=== PATIENT | male | born 1930 | race Caucasian/White ===

== ENCOUNTER 2016-08-15 10:28 | Inpatient (IN) | payer MEDICARE, OTHER ==
[2016-08-15 11:26] LABS: BASOPHIL# 0.2 X 10^3uL (0.0-0.1); EOSINOPHILS 1.2 % (0.0-6.0); EOSINOPHILS# 0.2 X 10^3uL (0.0-0.4); HEMATOCRIT 39.7 % (42.0-54.0); HEMOGLOBIN 13.8 g/dL (14.0-18.0); LYMPHOCYTES 10.6 % (20.0-40.0); LYMPHOCYTES# 1.9 X 10^3uL (0.8-3.8); MEAN CELL VOLUME 95.9 fL (80.0-100.0); MEAN CORPUS. HGB CONCENTRATION 34.7 g/dL (32.0-36.0); MEAN CORPUSCULAR HEMOGLOBIN 33.3 pg (29.0-35.0); MEAN PLATELET VOLUME 11.1 fL (7.4-10.4); MONOCYTES 9.2 % (2.0-10.0); MONOCYTES# 1.7 X 10^3uL (0.2-1.0); NEUTROPHILS# 14.3 X 10^3uL (2.6-6.7); PLATELET COUNT 170 X 10^3uL (130-440); RED BLOOD COUNT 4.14 X 10^6uL (4.20-6.10); RED CELL DISTRIBUTION WIDTH 14.4 % (11.5-14.5); WHITE BLOOD COUNT 18.3 X 10^3uL (3.9-10.7)
[2016-08-15 11:28] LABS: BLOOD UREA NITROGEN 22 mg/dL (9-20); CALCIUM 9.6 mg/dL (8.4-10.2); CHLORIDE 94 mmol/L (98-107); CREATININE 0.7 mg/dL (0.7-1.3); GLUCOSE 98 mg/dL (70-100); POTASSIUM 4.4 mmol/L (3.5-5.1); SODIUM 140 mmol/L (137-145)
--- NOTE | 2016-08-15 11:28 | RADIOLOGY REPORT ---
HISTORY: Shortness of breath. COMPARISON: None. FINDINGS: 1 view of the chest obtained. The lungs are hypoinflated. Coarse perihilar interstitial opacities may reflect vascular crowding rel ated to hypoinflation or mild edema. Retrocardiac airspace opacification may reflect relaxation atele ctasis or pneumonia. There are small bilateral pleural effusions, left greater than right. There is no evidence of pneumot horax. The heart is not enlarged. The patient is status post median sternotomy with numerous mediastinal cli ps suggesting prior coronary arterial bypass graft. The bones and soft tissues appear unremarkable. IMPRESSION: 1. Low lung volumes perihilar interstitial opacities may reflect mild edema or vascular crowding rela shahriar to hypoinflation. 2. Bilateral pleural effusions, with associated bibasilar airspace opacities, left greater than right , which may reflect relaxation atelectasis or pneumonia. Final Electronic Signature: This report was electronically signed by Gonzalo Casillas MD on 08/16/19 17 11:26 AM. meche /
[2016-08-15] MEDS ORDERED: POLYETHYLENE GLYCOL 3350 17 GM POWD.PACK PO PRN (11:53)
[2016-08-15] MEDS ORDERED: HOME MEDICATION LIST NEEDED 1 EA EACH MC ONE (11:53)
[2016-08-15] MEDS ORDERED: MAG-AL PLUS XS SUSP 30 ML UDC PO PRN (11:53)
[2016-08-15] MEDS ORDERED: ACETAMINOPHEN 325 MG TABLET PO PRN (11:53)
[2016-08-15] MEDS ORDERED: CLINDAMYCIN/D5W 600 MG/50 ML 600 MG IV ONE (11:57)
[2016-08-15] MEDS ORDERED: ENOXAPARIN SODIUM 100 MG/ML SYR SUBCUT SCH (12:00)
--- NOTE | 2016-08-15 12:55 | ER NURSING DOCUMENTATION ---
Nurse's Notes [facility] Name:Sebastien Adams Jr Age:86 yrs Sex:Male :1930 Arrival Date:08/15/2016 Time:10:28 Bed4 Private MD:Az Bray Diagnosis:Cellulitis of Leg Presentation: 08/15 10:40 Presenting complaint: Patient states: C/O weakness, bilat lower leg swelling with rs redness and pain. Hx of lung CA, developed a cough after returning from a trip to [place]. Saw Dr Quiroga on 08/05 and started z-pack and prednisone. Does not feel any better. SOB this morning, productive cough. Transition of care: Home. Notified ED Physician of patient's arrival and CC Dr. Robbins notified. at cartside on arrival. 10:40 Acuity: BOB 2 rs 10:40 Method Of Arrival: EMS: 400 rs Triage Assessment: 10:51 General: Appears in no apparent distress, comfortable, well developed, well nourished, rs well groomed, Behavior is cooperative, pleasant, Reports chills for 12-24 hours, fatigue for. Pain: Complains of pain in anterior lower legs, and left great toe (which is also red and swollen). Neuro: No deficits noted. 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 Reports weakness. Cardiovascular: No deficits noted. Capillary refill < 3 seconds Pulses are 3+ in left radial artery. Respiratory: Respiratory effort is even, unlabored, Respiratory pattern is regular, symmetrical, Reports shortness of breath cough that is productive, Onset: The symptoms/episode began/occurred the patient has moderate shortness of breath. GI: No deficits noted. Denies constipation, diarrhea, nausea, vomiting. : No deficits noted. Derm: Skin The skin over his lower legs is dry and cracking. his feet and ankles are edematous "better than usual". Skin is dry. Historical: - Allergies: PENICILLINS; - Home Meds: 1. Spiriva 2. Aspirin Oral 3. lisinopril 10 mg oral tab 1 tab once daily 4. Lasix 40 mg oral tab 1 tab once daily 5. Metamucil Smooth Texture Oral 6. Potassium Chloride Oral 7. Allopurinol Oral 8. Calcium Carbonate Oral 9. Stool Softener oral - PMHx: CAD; CANCER, LUNG; COPD; HYPERTENSION; MYOCARDIAL INFARCTION; Chest Pain (November 12, 2015); - PSHx: CABG; Mastoidectomy; CARPAL TUNNEL REPAIR; Bilat hip replacement; LOBECTOMY; - Tetanus: < 10 years. - Ebola Screening: : Patient negative for fever greater than or equal to 101.5 degrees Fahrenheit, and additional compatible Ebola Virus Disease symptoms. Patient denies exposure to infectious person. Patient denies travel to an Ebola-affected area in the 21 days before illness onset. No symptoms or risks identified at this time. . - Immunization history: Unable to Obtain. - Social history: Smoking status: Patient states former smoker of tobacco. Screenin:40 Infectious Disease Risk None. Abuse screen: Denies threats or abuse. Nutritional rs screening: No deficits noted. Assessment: 11:40 See Triage Assessment done by same RN. rs Vital Signs: 10:34 BP 113 / 63; Pulse 82; Resp 24; Temp 99.6; Pain 5/10; rs 10:59 BP 122 / 49; Pulse 76; Resp 22; Pulse Ox 97% on 5 lpm NC; Pain 5/10; rs 11:15 BP 127 / 53; Pulse 76; Resp 20; Pulse Ox 98% on 5 lpm NC; Pain 5/10; rs 11:30 BP 113 / 46; Pulse 74; Resp 20; Pulse Ox 98% on 5 lpm NC; Pain 5/10; rs 12:00 BP 115 / 45; Pulse 72; Resp 20; Pulse Ox 97% on 5 lpm NC; Pain 4/10; rs 12:30 BP 112 / 48; Pulse 77; Resp 20; Pulse Ox 98% on 5 lpm NC; Pain 4/10; rs ED Course: 10:29 Patient arrived in ED. lm3 10:29 Az Bray MD is Private Physician. lm3 10:30 Family accompanied patient. rs 10:30 Pulse Ox - RN Monitoring Only. rs 10:35 Bulmaro Robbins MD is Attending Physician. sc 10:40 Olga Hoffman, MIKE is Primary Nurse. rs 10:40 Door closed. Noise minimized. Oral care given. Warm blanket given. rs 10:47 Triage completed. rs 11:12 Port Xray Completed. dnn 11:13 CHEST; SINGLE VIEW [id number] In Process Unspecified. EDMS 11:13 CHEST SINGLE VIEW [id number] In Process Unspecified. EDMS 11:17 CHEST; SINGLE VIEW [id number] Sent. dnn 11:17 CHEST SINGLE VIEW [id number] Sent. dnn 11:18 CHEST; SINGLE VIEW [id number] In Process Unspecified. EDMS 11:18 CHEST SINGLE VIEW [id number] In Process Unspecified. EDMS 11:39 Notified ED Physician of patient's arrival and chief complaint. Dr. Robbins notified. rs 11:43 Private physician to see patient. Dr Bray here, with pt. rs 11:47 Az Bray MD is Admitting Physician. sc 12:26 Awaiting bed assignment. rs 12:27 Resting quietly. rs Administered Medications: Completed: Clindamycin 600 mg IVPB once 11:53 Drug: Clindamycin 600 mg; Volume: 50 ml; Route: IVPB; Rate: 1 ml/min; Infused Over: 30 rs mins; Site: left wrist; Delivery: [place] [facility]; 12:27 Follow up: IV Status: Completed infusion; IV Intake: 50ml rs Intake: 12:27 IV: 50ml; Total: 50ml. rs Outcome: 11:48 Decision to Admit by Provider. sc 12:42 Admitted to Med/surg accompanied by nurse, via stretcher. rs 12:42 Condition: improved 12:42 Report given to Schuyler RN 12:42 Instructed on need to admit 12:55 Patient left the ED. rs Signatures: Dispatcher [employer] Olga Aly RN RN rs Chew, Scott, MD MD sc Norman, David dnn McKibbon-Moore, Lisa 3
--- NOTE | 2016-08-15 12:55 | ER PHYSICIAN DOCUMENTATION ---
Physician Documentation [facility] Name:Sebastien Adams Jr Age:86 yrs Sex:Male :1930 Arrival Date:08/15/2016 Time:10:28 Bed4 Private MD:Az Bray ED, Scott Disposition: 08/15/16 11:48 Admit ordered for Az Bray. Preliminary diagnosis is Cellulitis of Leg. - Bed requested for Medical/Surgical. - Condition is Fair. - Problem is new. - Symptoms are unchanged. 23 HR OBS No HPI: 08/15 10:56 This 86 yrs old Male presents to ER via EMS with complaints of Leg Pain, Leg sc Swelling. 10:56 The patient presents with pain, that is acute, swelling. The complaints affect the left sc lakhani, right lakhani. Context: The problem was sustained at home, resulted from a chronic condition, an unknown cause, the patient can partially bear weight, must have assistance. Onset: The symptom(s)/episode began/occurred yesterday. Associated signs and symptoms: Pertinent positives: fever, rash, weakness. Historical: - Allergies: PENICILLINS; - Home Meds: 1. Spiriva 2. Aspirin Oral 3. lisinopril 10 mg oral tab 1 tab once daily 4. Lasix 40 mg oral tab 1 tab once daily 5. Metamucil Smooth Texture Oral 6. Potassium Chloride Oral 7. Allopurinol Oral 8. Calcium Carbonate Oral 9. Stool Softener oral - PMHx: CAD; CANCER, LUNG; COPD; HYPERTENSION; MYOCARDIAL INFARCTION; Chest Pain (November 12, 2015); - PSHx: CABG; Mastoidectomy; CARPAL TUNNEL REPAIR; Bilat hip replacement; LOBECTOMY; - Tetanus: < 10 years. - Ebola Screening: : Patient negative for fever greater than or equal to 101.5 degrees Fahrenheit, and additional compatible Ebola Virus Disease symptoms. Patient denies exposure to infectious person. Patient denies travel to an Ebola-affected area in the 21 days before illness onset. No symptoms or risks identified at this time. . - Immunization history: Unable to Obtain. - Social history: Smoking status: Patient states former smoker of tobacco. ROS: 10:58 Eyes: Negative for injury, pain, redness, and discharge. sc ENT: Negative for injury, pain, and discharge. Neck: Negative for injury, pain, and swelling. Cardiovascular: Negative for chest pain, palpitations, and edema. Abdomen/GI: Negative for abdominal pain, nausea, vomiting, diarrhea, and constipation. Back: Negative for injury and pain. 10:58 Neuro: Negative for headache, weakness, numbness, tingling, and seizure. sc 10:58 Constitutional: Positive for fever. 10:58 Respiratory: Positive for shortness of breath. 10:58 MS/extremity: Positive for swelling, tenderness. Exam: Head/Face: Normocephalic, atraumatic. Eyes: Pupils equal round and reactive to light, extra-ocular motions intact. Lids and lashes normal. Conjunctiva and sclera are non-icteric and not injected. Cornea within normal limits. Periorbital areas with no swelling, redness, or edema. ENT: Nares patent. No nasal discharge, no septal abnormalities noted. Tympanic membranes are normal and external auditory canals are clear. Oropharynx with no redness, swelling, or masses, exudates, or evidence of obstruction, uvula midline. Mucous membranes moist. Neck: Trachea midline, no thyromegaly or masses palpated, and no cervical lymphadenopathy. Supple, full range of motion without nuchal rigidity, or vertebral point tenderness. No meningismus. Chest/axilla: Normal chest wall appearance and motion. Nontender with no deformity. No lesions are appreciated. Cardiovascular: Regular rate and rhythm with a normal S1 and S2. No gallops, murmurs, or rubs. Normal PMI, no JVD. No pulse deficits. Abdomen/GI: Soft, non-tender, with normal bowel sounds. No distension or tympany. No guarding or rebound. No evidence of tenderness throughout. Back: No spinal tenderness. No costovertebral tenderness. Full range of motion. Skin: Warm, dry with normal turgor. Normal color with no rashes, no lesions, and no evidence of cellulitis. 10:58 Neuro: Awake and alert, GCS 15, oriented to person, place, time, and situation. sc Cranial nerves II-XII grossly intact. Motor strength 5/5 in all extremities. Sensory grossly intact. Cerebellar exam normal. Normal gait. 10:58 Constitutional: The patient appears alert, awake, febrile, frail. 10:58 Respiratory: the patient does not display signs of respiratory distress, Respirations: tachypnea, Breath sounds: rales, that are mild, are located in both bases. 10:58 Musculoskeletal/extremity: Extremities: grossly normal except: noted in the right lakhani and left lakhani: erythema, swelling, tenderness, ROM: intact in all extremities, Circulation is intact in all extremities. Sensation intact. Vital Signs: 10:34 BP 113 / 63; Pulse 82; Resp 24; Temp 99.6; Pain 5/10; rs 10:59 BP 122 / 49; Pulse 76; Resp 22; Pulse Ox 97% on 5 lpm NC; Pain 5/10; rs 11:15 BP 127 / 53; Pulse 76; Resp 20; Pulse Ox 98% on 5 lpm NC; Pain 5/10; rs 11:30 BP 113 / 46; Pulse 74; Resp 20; Pulse Ox 98% on 5 lpm NC; Pain 5/10; rs 12:00 BP 115 / 45; Pulse 72; Resp 20; Pulse Ox 97% on 5 lpm NC; Pain 4/10; rs 12:30 BP 112 / 48; Pulse 77; Resp 20; Pulse Ox 98% on 5 lpm NC; Pain 4/10; rs MDM: 10:35 Patient medically screened. nc 11:00 Differential diagnosis: chf with/without venous stasis and superficial cellulitis or sc thrombophlebitis. Data reviewed: vital signs, nurses notes, lab test result(s), and as a result, I will admit patient. Counseling: I had a detailed discussion with the patient and/or guardian regarding: the historical points, exam findings, and any diagnostic results supporting the discharge/admit diagnosis, lab results, radiology results, to return to the emergency department if symptoms worsen or persist or if there are any questions or concerns that arise at home. 08/15 11:30 Order name: CBC AUTO DIF, MDIF/RMOR IF IND [facility] 08/15 11:31 Interpretation: Abnormal: WHITE BLOOD COUNT 18.3; HEMOGLOBIN 13.8; HEMATOCRIT 39.7. nc 08/15 11:31 Order name: BASIC METABOLIC PANEL [facility] 08/15 11:32 Interpretation: Abnormal: CARBON DIOXIDE 40. nc 08/15 11:38 Order name: BNP,NT-PRO [facility] 08/16 07:24 Order name: CBC AUTO DIF, MDIF/RMOR IF IND [facility] 08/16 07:24 Order name: BASIC METABOLIC PANEL [facility] 08/16 11:07 Order name: BLOOD CULTURE [facility] 08/16 11:07 Order name: BLOOD CULTURE [facility] 08/17 09:27 Order name: BASIC METABOLIC PANEL [facility] 08/17 09:41 Order name: CBC AUTO DIF, MDIF/RMOR IF IND [facility] 08/17 10:06 Order name: URIC ACID [facility] 08/17 10:06 Order name: C-REACTIVE PROTEIN [facility] 08/15 11:13 Order name: CHEST; SINGLE VIEW [id number] [facility] 08/15 11:13 Order name: CHEST SINGLE VIEW [id number] [facility] 08/15 11:30 Order name: CHEST; SINGLE VIEW [id number]; Complete Time: 11:32 [facility] 08/15 11:31 Interpretation: Abnormal. sc 08/15 10:39 Order name: Iv Saline Lock; Complete Time: 11:35 sc Dispensed Medications: Completed: Clindamycin 600 mg IVPB once 11:53 Drug: Clindamycin 600 mg; Volume: 50 ml; Route: IVPB; Rate: 1 ml/min; Infused Over: 30 rs mins; Site: left wrist; Delivery: [place] [facility]ing; 12:27 Follow up: IV Status: Completed infusion; IV Intake: 50ml rs Signatures: Olga Hoffman RN RN Bulmaro Chavis MD MD nc
[2016-08-15] MEDS ORDERED: ALBUTEROL HFA 1 INH INHALER INHALATION PRN (13:41)
[2016-08-15] MEDS ORDERED: FUROSEMIDE 20 MG TABLET PO SCH (13:45)
[2016-08-15] MEDS: POTASSIUM CHLORIDE ER 20 MEQ TABLET PO SCH (15:06)
[2016-08-15] MEDS: LISINOPRIL 10 MG TABLET PO SCH (15:07)
[2016-08-15] MEDS: TIOTROPIUM BROMIDE 18 MCG CAP.W.DEV INHALATION SCH (15:14)
[2016-08-15] MEDS ORDERED: O2 HUMIDIFIER 650 ML BOTTLE INHALATION ONE (15:22)
--- NOTE | 2016-08-15 15:32 | HISTORY & PHYSICAL ---
DATE OF ADMISSION: 08/15/16 CHIEF COMPLAINT: Leg swelling. HISTORY OF PRESENT ILLNESS: An 86-year-old male awoke this morning with acute onset of bilateral leg edema with associated erythema and pain. Perhaps there were some vague symptoms that started last night. The patient just completed a course of azithromycin for respiratory symptoms. The patient has underlying oxygen dependent COPD with right upper lobe lobectomy for lung cancer, CAD, CHF , etc. ALLERGIES: Penicillin. MEDICATIONS Spiriva 18 mcg capsule 1 puff daily. ProAir HFA inhaler 2 puffs q.i.d. p.r.n. Colchicine 0.6 mg p.o. q.day. Aspirin 81 mg p.o. q.day. Furosemide 40 mg p.o. q.a.m. KCl 20 mEq p.o. q.day. Atorvastatin 20 mg p.o. q.h.s. Lisinopril 10 mg p.o. q.day. Docusate 100 mg p.o. q.day. Mucinex 1200 mg p.o. b.i.d. p.r.n. PAST MEDICAL HISTORY 1. Oxygen dependent COPD, oxygen 3 liters per minute by nasal prongs. 2. Squamous cell lung cancer diagnosed in 2011, status post right upper lobectomy and currently in remission, followed by Dr. De La Cruz and Dr. Maurice. 3. CAD in 1978 with IN in 1978, CABG surgery times 4 vessels in 1978, CABG surgery times 6 vessels in 2000. 4. CHF. 5. Asymptomatic cholelithiasis. 6. Depression. 7. Hypertension. 8. Gout. 9. Polycythemia vera for which the patient is on oxygen. 10. Hearing loss. 11. Hyperlipidemia. 12. Adrenal adenoma 1.3 cm. in 2011. 13. Hemorrhoidectomy. 14. Left carpal tunnel release surgery. 15. Right hip replacement. 16. Left hip replacement. SOCIAL HISTORY: times 3, 4 children. 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 He barton in [place] and reyes in [place]. Rare alcohol. Quit smoking in 2000. FAMILY HISTORY: Father at 86 of diabetes and had amputation. REVIEW OF SYSTEMS: No chest pain, chest pressure, chest tightness or other angina symptoms. No shortness of breath or cough. No kidney, liver, diabetes, thyroid, seizures, peptic ulcer disease, skin, allergy or bleeding disorders. No urinary problems. PREVENTATIVE HEALTH: Pneumovax in 2010. Prevnar in 2015. Flu shot 12/26/15. PHYSICAL EXAMINATION VITAL SIGNS: Blood pressure 113/63, pulse 82, respiratory rate 24, temperature 99.6, pulse ox 97% on oxygen at 5 liters per minute by nasal prongs. GENERAL: Elderly overweight male, NAD, with no respiratory distress. Alert and oriented times 3. HEENT: EOMI. PERRLA. Fundi difficult to visualize. Normal conjunctivae. TMs normal. Nasopharynx and oropharynx not injected. NECK: No adenopathy, thyromegaly or bruits. Supple. CHEST: Clear. No rales, rhonchi or wheezes, but has diminished breath sounds throughout. COR: RRR without murmurs, gallops, rubs or clicks. No jugular venous distention. No ectopy. ABDOMEN: Soft, nontender. No hepatosplenomegaly. No masses. No bruits. Bowel sounds present. LOWER EXTREMITIES: 3+ nonpitting edema three-quarters up bilateral shins, especially pedal. There is tender erythema in large patches of bilateral anterior shins. No calf or popliteal tenderness. Negative Homans sign. Posterior tibialis pulses difficult to palpate. Bilateral big toes tender to palpation and with movement, with patient concerned about gout there. NEUROLOGIC: Cranial nerves 2 through 12 intact. Motor 5/5. Sensory intact. LABORATORY STUDIES: WBC 18.3 with 78% neutrophils, 10% lymphocytes, H&H 13.8/ 39.7, platelets 170,000. Sodium 140, potassium 4.4, chloride 94, CO2 40, BUN 22 , creatinine 0.7, glucose 98, calcium 9.6. ProBNP 2100. IMAGING: Chest x-ray with bilateral pleural effusions, perihilar interstitial opacities per Radiology. ASSESSMENT 1. Bilateral lower leg cellulitis. 2. Oxygen dependent chronic obstructive pulmonary disease with mild CO2 retention. 3. History of lung cancer status post right upper lobe lobectomy. 4. Coronary artery disease. 5. Congestive heart failure. 6. Hypertension. 7. Hyperlipidemia. 8. Polycythemia vera. PLAN 1. Clindamycin 600 mg IV q.8h. 2. Lovenox prophylactically. 3. Resume usual medications. 4. Physical therapy for generalized weakness. 5. Full code status. 6. Respiratory therapy consult to assist in management of COPD and oxygen. Copy to Dr. Humphries, Dr. Roman, Dr. De La Cruz. [facility]
[2016-08-15] MEDS ORDERED: FUROSEMIDE 40 MG TABLET PO SCH (16:00)
[2016-08-15] MEDS: CLINDAMYCIN/D5W 600 MG/50 ML 600 MG PIGGYBACK IV SCH (20:53)
[2016-08-15] MEDS: ATORVASTATIN CALCIUM 10 MG TABLET PO SCH (20:59)
[2016-08-15] MEDS ORDERED: NORMAL SALINE 250 ML IV ONE (21:09)
[2016-08-15] MEDS: COLCHICINE 0.6 MG TABLET PO PRN (21:59)
[2016-08-15] MEDS: GUAIFENESIN ER 600 MG TABLET PO PRN (22:03)
[2016-08-16] MEDS: CLINDAMYCIN/D5W 600 MG/50 ML 600 MG PIGGYBACK IV SCH ×3 (04:57→20:36)
[2016-08-16] MEDS: FUROSEMIDE 40 MG TABLET PO SCH (05:59)
[2016-08-16] MEDS ORDERED: FUROSEMIDE 20 MG TABLET PO SCH (06:30)
[2016-08-16 07:14] LABS: HEMATOCRIT 37.8 % (42.0-54.0); HEMOGLOBIN 12.7 g/dL (14.0-18.0); WHITE BLOOD COUNT 15.4 X 10^3uL (3.9-10.7)
[2016-08-16 07:15] LABS: MEAN CELL VOLUME 96.9 fL (80.0-100.0); MEAN CORPUS. HGB CONCENTRATION 33.5 g/dL (32.0-36.0); MEAN CORPUSCULAR HEMOGLOBIN 32.5 pg (29.0-35.0); MEAN PLATELET VOLUME 11.3 fL (7.4-10.4); PLATELET COUNT 154 X 10^3uL (130-440); RED CELL DISTRIBUTION WIDTH 14.2 % (11.5-14.5)
[2016-08-16 07:16] LABS: BASOPHIL# 0.2 X 10^3uL (0.0-0.1); BASOPHILS 1.4 % (0.0-2.0); BLOOD UREA NITROGEN 24 mg/dL (9-20); CHLORIDE 93 mmol/L (98-107); CREATININE 0.9 mg/dL (0.7-1.3); EOSINOPHILS 1.5 % (0.0-6.0); EOSINOPHILS# 0.2 X 10^3uL (0.0-0.4); GLUCOSE 96 mg/dL (70-100); LYMPHOCYTES# 2.2 X 10^3uL (0.8-3.8); MONOCYTES 10.3 % (2.0-10.0); MONOCYTES# 1.6 X 10^3uL (0.2-1.0); NEUTROPHILS 72.8 % (54.0-75.0); NEUTROPHILS# 11.2 X 10^3uL (2.6-6.7); POTASSIUM 4.3 mmol/L (3.5-5.1); SODIUM 141 mmol/L (137-145)
[2016-08-16] MEDS: DOCUSATE SODIUM 100 MG CAPSULE PO SCH (09:05)
[2016-08-16] MEDS: LISINOPRIL 10 MG TABLET PO SCH (09:06)
[2016-08-16] MEDS: POTASSIUM CHLORIDE ER 20 MEQ TABLET PO SCH (09:06)
[2016-08-16] MEDS: TIOTROPIUM BROMIDE 18 MCG CAP.W.DEV INHALATION SCH (09:06)
[2016-08-16] MEDS: ENOXAPARIN SODIUM 40 MG/0.4 ML SYR SUBCUT SCH (09:06)
[2016-08-16] MEDS: COLCHICINE 0.6 MG TABLET PO PRN ×2 (09:15→12:53)
--- NOTE | 2016-08-16 09:41 | PROGRESS NOTE: IM SOAP ---
IM: PN Subjective Interval history: Legs are feeling better with less edema, erythema. Able to walk in room. Awaiting PT. Could not sleep in bed, but slept great in chair last night. No cough, SOB. IM: PN Objective Exam - I&O/Vital Signs I&O: Intake & Output 08/15/16 08/16/16 08/16/16 21:59 05:59 13:59 Intake Total 600 300 Output Total 400 250 Balance 200 50 Intake: IV 150 Left Forearm 150 Oral 600 150 Output: Urine 400 250 Other: Urine Appearance Clear Urine Color Light Rocio Voiding Method Urinal Urinal Vital Signs: Last Vital Signs Temp 36.9 C 08/16/16 06:52 Pulse 64 08/16/16 06:52 Resp 18 08/16/16 06:52 BP 89/46 08/16/16 06:52 Pulse Ox 95 08/16/16 06:52 Oxygen Flow Rate 4 Oxygen Delivery Method Nasal Cannula - Constitutional General appearance: Present: obese - Respiratory Respiratory exam: Present: decreased breath sounds, clear. Absent: rales, rhonchi, wheezes - Cardiovascular Cardiovascular exam: Present: RRR Additional comments: Distant HS - GI/Abdominal GI/Abdominal exam: Present: soft. Absent: tenderness - Extremities Exam Extremities exam: Present: edema, tenderness. Absent: Laura's Sign Additional comments: 2+ and improving, except pedal edema. No warmth, and fading erythema. No lakhani tenderness. Only pain on palpation of L big toe, presumably secondary to gout. - Skin Skin exam: Present: other Additional comments: L dorsal hand skin tear - Lab Labs: Laboratory Last Values WBC 15.4 X 10^3uL (3.9-10.7) H 08/16/16 06:10 RBC 3.90 X 10^6uL (4.20-6.10) L 08/16/16 06:10 Hgb 12.7 g/dL (14.0-18.0) L 08/16/16 06:10 Hct 37.8 % (42.0-54.0) L 08/16/16 06:10 MCV 96.9 fL (80.0-100.0) 08/16/16 06:10 MCH 32.5 pg (29.0-35.0) 08/16/16 06:10 MCHC 33.5 g/dL (32.0-36.0) 08/16/16 06:10 RDW 14.2 % (11.5-14.5) 08/16/16 06:10 Plt Count 154 X 10^3uL (130-440) 08/16/16 06:10 MPV 11.3 fL (7.4-10.4) H 08/16/16 06:10 Neutrophils % 72.8 % (54.0-75.0) 08/16/16 06:10 Lymphocytes % 14.0 % (20.0-40.0) L 08/16/16 06:10 Eosinophils % 1.5 % (0.0-6.0) 08/16/16 06:10 Basophils % 1.4 % (0.0-2.0) 08/16/16 06:10 Neutrophils # 11.2 X 10^3uL (2.6-6.7) H 08/16/16 06:10 Lymphocytes # 2.2 X 10^3uL (0.8-3.8) 08/16/16 06:10 Monocytes 10.3 % (2.0-10.0) H 08/16/16 06:10 Monocytes # 1.6 X 10^3uL (0.2-1.0) H 08/16/16 06:10 Eosinophils # 0.2 X 10^3uL (0.0-0.4) 08/16/16 06:10 Basophils # 0.2 X 10^3uL (0.0-0.1) H 08/16/16 06:10 Sodium 141 mmol/L (137-145) 08/16/16 06:10 Potassium 4.3 mmol/L (3.5-5.1) 08/16/16 06:10 Chloride 93 mmol/L (98-107) L 08/16/16 06:10 Carbon Dioxide 38 mmol/L (22-30) H 08/16/16 06:10 BUN 24 mg/dL (9-20) H 08/16/16 06:10 Creatinine 0.9 mg/dL (0.7-1.3) 08/16/16 06:10 GFR Calculation Not Reportable 08/16/16 06:10 Glucose 96 mg/dL (70-100) 08/16/16 06:10 Calcium 9.6 mg/dL (8.4-10.2) 08/15/16 11:00 NT-Pro-B Natriuret Pep 2100 pg/mL (<450) H 08/15/16 11:00 Assessment and Plan - Date of Encounter Date of Encounter: 08/16/16 (1) Bilateral lower leg cellulitis Status: Acute Assessment and plan: Clindamycin 600mg IV tid Improving Possible D/C over the weekend Current Visit: Yes (2) Gout attack Status: Acute Assessment and plan: L Big Toe Colchicine Current Visit: Yes (3) Skin tear of left hand without complication Status: Acute Assessment and plan: Dressings Current Visit: Yes (4) COPD (chronic obstructive pulmonary disease) Status: Chronic Assessment and plan: O2 dependent @ 3 l/min Current Visit: Yes (5) Hypoxia Status: Chronic Current Visit: Yes (6) Lung cancer, upper lobe Status: Chronic Assessment and plan: In remission Current Visit: Yes (7) CAD (coronary artery disease) Status: Chronic Current Visit: Yes (8) CHF (congestive heart failure) Status: Acute Assessment and plan: Edema improving. c/o orthopnea, paroxysmal nocturnal dyspnea Lasix, KCl Leg elevation, exercise, low salt Current Visit: Yes (9) Edema Status: Acute Assessment and plan: Placing pt at risk for cellulitis Current Visit: Yes (10) HTN (hypertension) Status: Chronic Current Visit: Yes (11) Hyperlipidemia Status: Chronic Current Visit: Yes (12) Polycythemia vera Status: Chronic Assessment and plan: O2 Current Visit: Yes (13) Generalized weakness Status: Acute Assessment and plan: PT Pt can be discharged once cleared by PT. Current Visit: Yes - Time Spent With Patient Total time spent with greater than 50% in coordination of care (as documented) at patient's floor/unit and/or counseling patient: Quality Questions - VTE Prophylaxis Assessment VTE Present on Admission?: No Patient at risk for venous thromboembolism?: Yes VTE Risk Level: High Risk Pharmaceutical VTE prophylaxis contraindication reason: N/A- VTE prophylaxsis ordered Mechanical VTE prophylaxis contraindication reason: N/A- VTE prophylaxsis ordered
[2016-08-16 10:16] LABS: CALCIUM 9.5 mg/dL (8.4-10.2)
[2016-08-16] MEDS: GUAIFENESIN ER 600 MG TABLET PO PRN (18:25)
[2016-08-16] MEDS: ATORVASTATIN CALCIUM 10 MG TABLET PO SCH (20:36)
[2016-08-16] MEDS ORDERED: GUAIFENESIN ER 600 MG TABLET PO SCH (21:00)
[2016-08-17] MEDS: CLINDAMYCIN/D5W 600 MG/50 ML 600 MG PIGGYBACK IV SCH ×4 (06:36→21:12)
[2016-08-17] MEDS: FUROSEMIDE 40 MG TABLET PO SCH (06:36)
--- NOTE | 2016-08-17 09:15 | PROGRESS NOTE: IM APSO ---
Assessment and Plan - Date of Encounter Date of Encounter: 08/17/16 (1) Gout attack Status: Acute Assessment and plan: Not improving, patient has marked tenderness. I suspect the erythema on the legs may be gout related, rather than cellulitis. I will start a steroid taper. Current Visit: Yes (2) Bilateral lower leg cellulitis Status: Acute Assessment and plan: Patient has improved with Clindamycin. CBC is pending. WBC was elevated at 15, 400 yesterday. I will order a probiotic to take with the Clindamycin, as the patient's risk of C. Diff is high, particularly with added steroids. Current Visit: Yes (3) Generalized weakness Status: Chronic Assessment and plan: Multiple chronic medical conditions, patient is being treated by physical therapy. Current Visit: Yes (4) COPD (chronic obstructive pulmonary disease) Status: Chronic Assessment and plan: I was asked for an expectorant yesterday, due to difficulty clearing secretions. Patient is doing better with the addition of Mucinex, he states. Current Visit: Yes - Time Spent With Patient Total time spent with greater than 50% in coordination of care (as documented) at patient's floor/unit and/or counseling patient: 16-24 minutes IM: PN Subjective Interval history: Patient's coughing has improved with the start of Mucinex. He complains of feeling weak and tired. Labs for today are still pending, there was difficulty in drawing them. His gout has not improved. Patient did eat shrimp the night before he came in, which may have been a precipitant. Only occasional beer consumed, he says, one on the day before admission. His legs are less red. No fever or chills. General: fatigue, malaise HEENT: no headache Cardiovascular: no chest pain, no chest pressure Respiratory: no cough, no sputum, no wheeze, no SOB Gastrointestinal: no abdominal pain Musculoskeletal: pain, swelling Integumentary: rashes IM: PN Objective Exam - I&O/Vital Signs I&O: Intake & Output 08/16/16 08/17/16 08/17/16 21:59 05:59 13:59 Intake Total 730 200 Output Total 675 150 Balance 55 50 Intake: Oral 730 200 Output: Urine 675 150 Other: Urine Appearance Clear Clear Urine Color Yellow Yellow Voiding Method Urinal Urinal # Voids 2 Vital Signs: Last Vital Signs Temp 36.1 C L 08/17/16 06:29 Pulse 90 08/17/16 06:29 Resp 20 08/17/16 06:29 BP 94/56 08/17/16 06:29 Pulse Ox 91 08/17/16 06:29 Oxygen Flow Rate 4 Oxygen Delivery Method Nasal Cannula - Constitutional General appearance: Present: obese - Head Head exam: Present: normal inspection - Eye Eye exam: Present: EOMI. Absent: conjunctival injection Pupils: Present: PERRL - ENT ENT exam: Present: mucous membranes moist - Respiratory Respiratory exam: Present: decreased breath sounds, clear. Absent: rales, rhonchi, wheezes - Cardiovascular Cardiovascular exam: Present: RRR, systolic murmur - GI/Abdominal GI/Abdominal exam: Present: normal bowel sounds, soft. Absent: tenderness - Extremities Exam Extremities exam: Present: edema, tenderness (posterior left calf and left great toe in particular). Absent: Laura's Sign - Skin Skin exam: Present: other (erythematous patches on shins bilaterally,with some warmth. ) - Lab Labs: Laboratory Last Values WBC 15.4 X 10^3uL (3.9-10.7) H 08/16/16 06:10 RBC 3.90 X 10^6uL (4.20-6.10) L 08/16/16 06:10 Hgb 12.7 g/dL (14.0-18.0) L 08/16/16 06:10 Hct 37.8 % (42.0-54.0) L 08/16/16 06:10 MCV 96.9 fL (80.0-100.0) 08/16/16 06:10 MCH 32.5 pg (29.0-35.0) 08/16/16 06:10 MCHC 33.5 g/dL (32.0-36.0) 08/16/16 06:10 RDW 14.2 % (11.5-14.5) 08/16/16 06:10 Plt Count 154 X 10^3uL (130-440) 08/16/16 06:10 MPV 11.3 fL (7.4-10.4) H 08/16/16 06:10 Neutrophils % 72.8 % (54.0-75.0) 08/16/16 06:10 Lymphocytes % 14.0 % (20.0-40.0) L 08/16/16 06:10 Eosinophils % 1.5 % (0.0-6.0) 08/16/16 06:10 Basophils % 1.4 % (0.0-2.0) 08/16/16 06:10 Neutrophils # 11.2 X 10^3uL (2.6-6.7) H 08/16/16 06:10 Lymphocytes # 2.2 X 10^3uL (0.8-3.8) 08/16/16 06:10 Monocytes 10.3 % (2.0-10.0) H 08/16/16 06:10 Monocytes # 1.6 X 10^3uL (0.2-1.0) H 08/16/16 06:10 Eosinophils # 0.2 X 10^3uL (0.0-0.4) 08/16/16 06:10 Basophils # 0.2 X 10^3uL (0.0-0.1) H 08/16/16 06:10 Sodium 141 mmol/L (137-145) 08/16/16 06:10 Potassium 4.3 mmol/L (3.5-5.1) 08/16/16 06:10 Chloride 93 mmol/L (98-107) L 08/16/16 06:10 Carbon Dioxide 38 mmol/L (22-30) H 08/16/16 06:10 BUN 24 mg/dL (9-20) H 08/16/16 06:10 Creatinine 0.9 mg/dL (0.7-1.3) 08/16/16 06:10 GFR Calculation Not Reportable 08/16/16 06:10 Glucose 96 mg/dL (70-100) 08/16/16 06:10 Calcium 9.5 mg/dL (8.4-10.2) 08/16/16 06:10 NT-Pro-B Natriuret Pep 2100 pg/mL (<450) H 08/15/16 11:00 (1) Gout attack Qualifiers: Gout site: toe Laterality: left (4) COPD (chronic obstructive pulmonary disease) Qualifiers: COPD type: unspecified COPD Qualified Code(s): J44.9 - Chronic obstructive pulmonary disease, unspecified
[2016-08-17 09:25] LABS: CHLORIDE 96 mmol/L (98-107); GLUCOSE 112 mg/dL (70-100); POTASSIUM 4.6 mmol/L (3.5-5.1); SODIUM 137 mmol/L (137-145)
[2016-08-17 09:26] LABS: BLOOD UREA NITROGEN 32 mg/dL (9-20); CREATININE 0.8 mg/dL (0.7-1.3)
[2016-08-17] MEDS: ENOXAPARIN SODIUM 40 MG/0.4 ML SYR SUBCUT SCH (09:29)
[2016-08-17] MEDS: LISINOPRIL 10 MG TABLET PO SCH (09:29)
[2016-08-17] MEDS: GUAIFENESIN ER 600 MG TABLET PO SCH ×2 (09:30→21:12)
[2016-08-17] MEDS: TIOTROPIUM BROMIDE 18 MCG CAP.W.DEV INHALATION SCH (09:31)
[2016-08-17] MEDS: DOCUSATE SODIUM 100 MG CAPSULE PO SCH (09:31)
[2016-08-17] MEDS: POTASSIUM CHLORIDE ER 20 MEQ TABLET PO SCH (09:31)
[2016-08-17 09:35] LABS: CALCIUM 9.2 mg/dL (8.4-10.2); URIC ACID 9.5 mg/dL (3.5-8.5)
[2016-08-17 09:38] LABS: BASOPHIL# 0.7 X 10^3uL (0.0-0.1); BASOPHILS 4.7 % (0.0-2.0); EOSINOPHILS 1.8 % (0.0-6.0); EOSINOPHILS# 0.3 X 10^3uL (0.0-0.4); HEMATOCRIT 40.5 % (42.0-54.0); LYMPHOCYTES 11.9 % (20.0-40.0); LYMPHOCYTES# 1.8 X 10^3uL (0.8-3.8); MEAN CELL VOLUME 96.9 fL (80.0-100.0); MEAN PLATELET VOLUME 10.7 fL (7.4-10.4); MONOCYTES 9.3 % (2.0-10.0); MONOCYTES# 1.4 X 10^3uL (0.2-1.0); NEUTROPHILS 72.3 % (54.0-75.0); NEUTROPHILS# 10.8 X 10^3uL (2.6-6.7); PLATELET COUNT 138 X 10^3uL (130-440); RED BLOOD COUNT 4.18 X 10^6uL (4.20-6.10); RED CELL DISTRIBUTION WIDTH 14.2 % (11.5-14.5)
[2016-08-17] MEDS: PROBIOTIC 1 CAP CAPSULE PO SCH ×2 (09:52→21:12)
[2016-08-17] MEDS: predniSONE 10 MG TABLET PO SCH (09:52)
[2016-08-17 09:57] LABS: C-REACTIVE PROTEIN 71.3 mg/L (<10.0)
[2016-08-17] MEDS: ATORVASTATIN CALCIUM 10 MG TABLET PO SCH (21:15)
[2016-08-17] MEDS ORDERED: ATORVASTATIN CALCIUIM 40 MG TABLET ONE (21:27)
[2016-08-18] MEDS: CLINDAMYCIN/D5W 600 MG/50 ML 600 MG PIGGYBACK IV SCH ×3 (05:54→21:10)
[2016-08-18] MEDS: FUROSEMIDE 40 MG TABLET PO SCH (06:22)
[2016-08-18] MEDS: TIOTROPIUM BROMIDE 18 MCG CAP.W.DEV INHALATION SCH (08:47)
[2016-08-18] MEDS: ENOXAPARIN SODIUM 40 MG/0.4 ML SYR SUBCUT SCH (08:47)
[2016-08-18] MEDS: DOCUSATE SODIUM 100 MG CAPSULE PO SCH (08:48)
[2016-08-18] MEDS: POTASSIUM CHLORIDE ER 20 MEQ TABLET PO SCH (08:48)
[2016-08-18] MEDS: PROBIOTIC 1 CAP CAPSULE PO SCH ×2 (08:48→21:09)
[2016-08-18] MEDS: predniSONE 10 MG TABLET PO SCH (08:48)
[2016-08-18] MEDS: GUAIFENESIN ER 600 MG TABLET PO SCH ×2 (08:48→21:09)
[2016-08-18] MEDS: LISINOPRIL 10 MG TABLET PO SCH (08:53)
--- NOTE | 2016-08-18 09:26 | PROGRESS NOTE: IM APSO ---
Assessment and Plan - Date of Encounter Date of Encounter: 08/18/16 (1) Gout attack Status: Acute Assessment and plan: I have added Prednisone to his regimen, and there is decrease in tenderness and erythema of both legs, except the left calf, which is markedly tender, without findings of particular erythema on exam. Patient has been off Allopurinol for several years, he states, he does not know why, although his [facility] chart states "patient choice" in 2013. I encouraged him to consider a restart once he is through the acute attack. He now recalls that he ate at the [employer] twice last week, and had fairly large amounts of shrimp each time. I am adding a CPK to his bloodwork already in the lab (he is a VERY problematic access patient for blood draws,) to consider a myositis. His CRP elevation could well be consistent with gout, but his muscle tenderness and weakness are not. Continue efforts with physical therapy. Patient may need to enter transitional care status to regain strength. Current Visit: Yes (2) Bilateral lower leg cellulitis Status: Acute Assessment and plan: Patient continues on Clindamycin. I am not convinced of the diagnosis. Blood cultures are negative. WBC remains elevated, and has not responded well to antibiotic therapy. His WBC will be elevated now from steroids, but it did not decrease prior to that as it should have. There can certainly be an elevation of WBC with severe gout attacks, also. Current Visit: Yes (3) Generalized weakness Status: Chronic Assessment and plan: As above, CPK has been ordered, and the patient continues his PT. Given the patient's history of lung cancer, could also consider a paraneoplastic syndrome. Current Visit: Yes (4) COPD (chronic obstructive pulmonary disease) Status: Chronic Assessment and plan: Stable, with improved coughing symptoms on Mucinex. Current Visit: Yes - Time Spent With Patient Total time spent with greater than 50% in coordination of care (as documented) at patient's floor/unit and/or counseling patient: 16-24 minutes IM: PN Subjective Interval history: Does not feel too bad, but complains that he is weak. He is having difficulty getting up from a bed or chair, but once up is able to ambulate unassisted per nursing report. Pain has subsided. The labs from yesterday continue to show elevated WBC, his uric acid is very high at 9.5, and his CRP is very elevated at 73. I am not convinced that the patient has cellulitis, and feel he more likely has crystal disease, and would consider a muscular process, given his marked tenderness of the distal leg muscles on exam, particularly on the left. Consider myositis. General: fatigue HEENT: no headache Cardiovascular: no chest pain, no chest pressure Respiratory: no cough, no sputum, no wheeze, no SOB Gastrointestinal: no abdominal pain Musculoskeletal: pain, swelling Integumentary: rashes Neurological: limb weakness IM: PN Objective Exam - I&O/Vital Signs I&O: Intake & Output 08/17/16 08/18/16 08/18/16 21:59 05:59 13:59 Intake Total 900 750 Output Total 1175 500 Balance -275 250 Weight 102.512 kg Intake: IV 100 Left Forearm 100 Oral 900 650 Output: Urine 1175 500 Other: Urine Appearance Clear Clear Urine Color Straw Straw Voiding Method Urinal Urinal # Voids 2 Vital Signs: Last Vital Signs Temp 36.5 C 08/18/16 06:27 Pulse 67 08/18/16 06:27 Resp 20 08/18/16 06:27 BP 100/65 08/18/16 06:27 Pulse Ox 92 08/18/16 06:27 Oxygen Flow Rate 1.5 Oxygen Delivery Method Nasal Cannula - Constitutional General appearance: Present: obese - Head Head exam: Present: normal inspection - Eye Eye exam: Present: EOMI. Absent: conjunctival injection Pupils: Present: PERRL - ENT ENT exam: Present: mucous membranes moist - Respiratory Respiratory exam: Present: decreased breath sounds, clear. Absent: rales, rhonchi, wheezes - Cardiovascular Cardiovascular exam: Present: RRR, systolic murmur - GI/Abdominal GI/Abdominal exam: Present: normal bowel sounds, soft. Absent: tenderness - Extremities Exam Extremities exam: Present: edema, tenderness (posterior left calf and left great toe in particular). Absent: Laura's Sign - Neurological Exam Neurological exam: Present: alert. Absent: reflexes normal (diminished) - Skin Skin exam: Present: other (erythematous patches on shins bilaterally,with some warmth. ) - Lab Labs: Laboratory Last Values WBC 15.0 X 10^3uL (3.9-10.7) H 08/17/16 08:50 RBC 4.18 X 10^6uL (4.20-6.10) L 08/17/16 08:50 Hgb 13.0 g/dL (14.0-18.0) L 08/17/16 08:50 Hct 40.5 % (42.0-54.0) L 08/17/16 08:50 MCV 96.9 fL (80.0-100.0) 08/17/16 08:50 MCH 31.0 pg (29.0-35.0) 08/17/16 08:50 MCHC 32.0 g/dL (32.0-36.0) 08/17/16 08:50 RDW 14.2 % (11.5-14.5) 08/17/16 08:50 Plt Count 138 X 10^3uL (130-440) 08/17/16 08:50 MPV 10.7 fL (7.4-10.4) H 08/17/16 08:50 Neutrophils % 72.3 % (54.0-75.0) 08/17/16 08:50 Lymphocytes % 11.9 % (20.0-40.0) L 08/17/16 08:50 Eosinophils % 1.8 % (0.0-6.0) 08/17/16 08:50 Basophils % 4.7 % (0.0-2.0) H 08/17/16 08:50 Neutrophils # 10.8 X 10^3uL (2.6-6.7) H 08/17/16 08:50 Lymphocytes # 1.8 X 10^3uL (0.8-3.8) 08/17/16 08:50 Monocytes 9.3 % (2.0-10.0) 08/17/16 08:50 Monocytes # 1.4 X 10^3uL (0.2-1.0) H 08/17/16 08:50 Eosinophils # 0.3 X 10^3uL (0.0-0.4) 08/17/16 08:50 Basophils # 0.7 X 10^3uL (0.0-0.1) H 08/17/16 08:50 Sodium 137 mmol/L (137-145) 08/17/16 08:50 Potassium 4.6 mmol/L (3.5-5.1) 08/17/16 08:50 Chloride 96 mmol/L (98-107) L 08/17/16 08:50 Carbon Dioxide 31 mmol/L (22-30) H 08/17/16 08:50 BUN 32 mg/dL (9-20) H 08/17/16 08:50 Creatinine 0.8 mg/dL (0.7-1.3) 08/17/16 08:50 GFR Calculation Not Reportable 08/17/16 08:50 Glucose 112 mg/dL (70-100) H 08/17/16 08:50 Uric Acid 9.5 mg/dL (3.5-8.5) H 08/17/16 08:50 Calcium 9.2 mg/dL (8.4-10.2) 08/17/16 08:50 C-Reactive Protein 71.3 mg/L (<10.0) H 08/17/16 08:50 NT-Pro-B Natriuret Pep 2100 pg/mL (<450) H 08/15/16 11:00 (1) Gout attack Qualifiers: Gout site: toe Laterality: left (4) COPD (chronic obstructive pulmonary disease) Qualifiers: COPD type: unspecified COPD Qualified Code(s): J44.9 - Chronic obstructive pulmonary disease, unspecified
[2016-08-18] MEDS: ATORVASTATIN CALCIUM 10 MG TABLET PO SCH (21:08)
[2016-08-18] MEDS ORDERED: ATORVASTATIN CALCIUIM 40 MG TABLET ONE (21:19)
[2016-08-19 04:44] LABS: C-REACTIVE PROTEIN 42.2 mg/L (<10.0)
[2016-08-19 05:13] LABS: HEMOGLOBIN 13.5 g/dL (14.0-18.0); MEAN CELL VOLUME 96.5 fL (80.0-100.0); MEAN CORPUS. HGB CONCENTRATION 33.8 g/dL (32.0-36.0); MEAN CORPUSCULAR HEMOGLOBIN 32.7 pg (29.0-35.0); MEAN PLATELET VOLUME 10.2 fL (7.4-10.4); PLATELET COUNT 163 X 10^3uL (130-440); RED BLOOD COUNT 4.14 X 10^6uL (4.20-6.10); RED CELL DISTRIBUTION WIDTH 13.3 % (11.5-14.5); WHITE BLOOD COUNT 10.9 X 10^3uL (3.9-10.7)
[2016-08-19 05:14] LABS: BAND% (Manual) 9 % (0.0-1.0); BASOPHIL % (Manual) 1 % (0.0-2.0); EOSINOPHIL % (Manual) 3 % (0.0-6.0); MONOCYTE % (Manual) 7 % (2.0-10.0); NEUTROPHIL % (Manual) 64 % (54.0-75.0)
[2016-08-19 05:15] LABS: LYMPHOCYTE % (Manual) 16 % (20.0-40.0)
[2016-08-19 05:16] LABS: PLATELET ESTIMATE ADEQUATE
[2016-08-19] MEDS: CLINDAMYCIN/D5W 600 MG/50 ML 600 MG PIGGYBACK IV SCH ×2 (05:47→15:17)
[2016-08-19] MEDS: FUROSEMIDE 40 MG TABLET PO SCH (06:19)
[2016-08-19] MEDS: PROBIOTIC 1 CAP CAPSULE PO SCH (08:37)
[2016-08-19] MEDS: predniSONE 10 MG TABLET PO SCH (08:37)
[2016-08-19] MEDS: GUAIFENESIN ER 600 MG TABLET PO SCH (08:37)
[2016-08-19] MEDS: DOCUSATE SODIUM 100 MG CAPSULE PO SCH (08:38)
[2016-08-19] MEDS: ENOXAPARIN SODIUM 40 MG/0.4 ML SYR SUBCUT SCH (08:38)
[2016-08-19] MEDS: POTASSIUM CHLORIDE ER 20 MEQ TABLET PO SCH (08:38)
[2016-08-19] MEDS: LISINOPRIL 10 MG TABLET PO SCH (08:38)
[2016-08-19] MEDS: TIOTROPIUM BROMIDE 18 MCG CAP.W.DEV INHALATION SCH (08:53)
[2016-08-19] MEDS: COLCHICINE 0.6 MG TABLET PO PRN (11:49)
--- NOTE | 2016-08-19 15:19 | US REPORT ---
HISTORY: Bilateral calf pain. COMPARISON: None. FINDINGS: Duplex Doppler color flow sonography, 2D ultrasound of vascular anatomy, and Doppler spectral analysi s of the left and right lower extremity veins was performed. The common femoral, superficial femoral, and popliteal veins are fully patent, with normal compressib ility, no filling defect, normal waveforms, and normal augmentation. The calf veins are patent. No Kate's cyst noted. IMPRESSION: No sonographic evidence of right or left lower extremity venous thrombus. Final Electronic Signature: This report was electronically signed by Jasson Horta MD on 08/19/2016 3:1 6 PM. [facility] /
[2016-08-19 15:49] VITALS: BP 101/52; PULSE 93; RESP 12; TEMP 98; O2SAT 92
--- NOTE | 2016-08-19 16:24 | PROGRESS NOTE: IM SOAP ---
IM: PN Subjective General: fatigue Cardiovascular: no chest pain, no chest pressure Respiratory: no cough, no sputum, no wheeze, no SOB Gastrointestinal: no abdominal pain Musculoskeletal: pain (bilat posterior calf pain), swelling, weakness ( improving ambulation 100ft today per PT), other (L great toe gout swelling/ erythema improving) IM: PN Objective Exam - I&O/Vital Signs I&O: Intake & Output 08/19/16 08/19/16 08/19/16 05:59 13:59 21:59 Intake Total 400 Output Total 425 Balance -25 Weight 100.879 kg Intake: IV 100 Left Forearm 100 Oral 300 Output: Urine 425 Other: Urine Appearance Clear Clear Urine Color Straw Straw Stool Size Large Large Stool Characteristics Formed Formed Hard Hard Brown Brown Voiding Method Urinal Urinal # Voids 2 # Bowel Movements 1 Vital Signs: Last Vital Signs Temp 36.6 C 08/19/16 15:00 Pulse 93 H 08/19/16 15:00 Resp 12 08/19/16 15:00 BP 101/52 08/19/16 15:00 Pulse Ox 92 08/19/16 15:00 Oxygen Flow Rate 2.5 Oxygen Delivery Method Nasal Cannula - Eye Eye exam: Absent: conjunctival injection - Respiratory Respiratory exam: Present: decreased breath sounds, clear. Absent: rales, rhonchi, wheezes - Cardiovascular Cardiovascular exam: Present: RRR, systolic murmur - GI/Abdominal GI/Abdominal exam: Present: normal bowel sounds, soft. Absent: tenderness - Extremities Exam Extremities exam: Present: edema (3+ bilat), tenderness (bilat posterior calf tenderness; left great toe decreased erythema, swelling and tenderness). Absent : Laura's Sign - Skin Skin exam: Present: other (Fading bilat ant lakhani erythema, shrinking in size by at least half.) - Lab Labs: Laboratory Last Values WBC 10.9 X 10^3uL (3.9-10.7) H 08/19/16 04:20 RBC 4.14 X 10^6uL (4.20-6.10) L 08/19/16 04:20 Hgb 13.5 g/dL (14.0-18.0) L 08/19/16 04:20 Hct 40.0 % (42.0-54.0) L 08/19/16 04:20 MCV 96.5 fL (80.0-100.0) 08/19/16 04:20 MCH 32.7 pg (29.0-35.0) 08/19/16 04:20 MCHC 33.8 g/dL (32.0-36.0) 08/19/16 04:20 RDW 13.3 % (11.5-14.5) 08/19/16 04:20 Plt Count 163 X 10^3uL (130-440) 08/19/16 04:20 MPV 10.2 fL (7.4-10.4) 08/19/16 04:20 Total Counted 100 08/19/16 04:20 Neutrophils % 72.3 % (54.0-75.0) 08/17/16 08:50 Neutrophils % (Manual) 64 % (54.0-75.0) 08/19/16 04:20 Band Neuts % (Manual) 9 % (0.0-1.0) H 08/19/16 04:20 Lymphocytes % 11.9 % (20.0-40.0) L 08/17/16 08:50 Lymphocytes % (Manual) 16 % (20.0-40.0) L 08/19/16 04:20 Monocytes % (Manual) 7 % (2.0-10.0) 08/19/16 04:20 Eosinophils % 1.8 % (0.0-6.0) 08/17/16 08:50 Eosinophils % (Manual) 3 % (0.0-6.0) 08/19/16 04:20 Basophils % 4.7 % (0.0-2.0) H 08/17/16 08:50 Basophils % (Manual) 1 % (0.0-2.0) 08/19/16 04:20 Neutrophils # 10.8 X 10^3uL (2.6-6.7) H 08/17/16 08:50 Lymphocytes # 1.8 X 10^3uL (0.8-3.8) 08/17/16 08:50 Monocytes 9.3 % (2.0-10.0) 08/17/16 08:50 Monocytes # 1.4 X 10^3uL (0.2-1.0) H 08/17/16 08:50 Eosinophils # 0.3 X 10^3uL (0.0-0.4) 08/17/16 08:50 Basophils # 0.7 X 10^3uL (0.0-0.1) H 08/17/16 08:50 Platelet Estimate Adequate 08/19/16 04:20 Sodium 137 mmol/L (137-145) 08/17/16 08:50 Potassium 4.6 mmol/L (3.5-5.1) 08/17/16 08:50 Chloride 96 mmol/L (98-107) L 08/17/16 08:50 Carbon Dioxide 31 mmol/L (22-30) H 08/17/16 08:50 BUN 32 mg/dL (9-20) H 08/17/16 08:50 Creatinine 0.8 mg/dL (0.7-1.3) 08/17/16 08:50 GFR Calculation Not Reportable 08/17/16 08:50 Glucose 112 mg/dL (70-100) H 08/17/16 08:50 Uric Acid 9.5 mg/dL (3.5-8.5) H 08/17/16 08:50 Calcium 9.2 mg/dL (8.4-10.2) 08/17/16 08:50 Creatine Kinase 38 U/L (55-170) L 08/18/16 09:27 C-Reactive Protein 42.2 mg/L (<10.0) H 08/19/16 04:20 NT-Pro-B Natriuret Pep 2100 pg/mL (<450) H 08/15/16 11:00 Assessment and Plan - Date of Encounter Date of Encounter: 08/19/16 (1) Bilateral lower leg cellulitis Status: Acute Assessment and plan: Clindamycin 600mg IV tid Improving D/C home Current Visit: Yes (2) Gout attack Status: Acute Assessment and plan: L Big Toe improving Colchicine Current Visit: Yes (3) Skin tear of left hand without complication Status: Acute Assessment and plan: Dressings Current Visit: Yes (4) COPD (chronic obstructive pulmonary disease) Status: Chronic Assessment and plan: O2 dependent @ 3 l/min Current Visit: Yes (5) Hypoxia Status: Chronic Current Visit: Yes (6) Lung cancer, upper lobe Status: Chronic Assessment and plan: In remission Current Visit: Yes (7) CAD (coronary artery disease) Status: Chronic Current Visit: Yes (8) CHF (congestive heart failure) Status: Acute Assessment and plan: Edema improving. c/o orthopnea, paroxysmal nocturnal dyspnea Lasix, KCl Leg elevation, exercise, low salt Will teach VERENICE wrap application since pt acknowledges non-compliance with Jared patele Current Visit: Yes (9) Edema Status: Acute Current Visit: Yes (10) HTN (hypertension) Status: Chronic Current Visit: Yes (11) Hyperlipidemia Status: Chronic Current Visit: Yes (12) Polycythemia vera Status: Chronic Assessment and plan: O2 Current Visit: Yes (13) Generalized weakness Status: Chronic Assessment and plan: improving 100ft today PT Cleared by PT. Current Visit: Yes (14) Bilateral calf pain Status: Acute Assessment and plan: Bilat venous doppler negative, no DVT Current Visit: Yes - Time Spent With Patient Total time spent with greater than 50% in coordination of care (as documented) at patient's floor/unit and/or counseling patient: (2) Gout attack Qualifiers: Gout site: toe Laterality: left (4) COPD (chronic obstructive pulmonary disease) Qualifiers: COPD type: unspecified COPD Qualified Code(s): J44.9 - Chronic obstructive pulmonary disease, unspecified
--- NOTE | 2016-08-19 20:07 | DISCHARGE SUMMARY ---
DATE OF ADMISSION: 08/15/16 DATE OF DISCHARGE: 08/19/16 ATTENDING PHYSICIAN: Az Bray MD DIAGNOSES 1. Bilateral lower leg cellulitis. 2. Left big toe acute gout attack. 3. Left dorsal hand skin tear. 4. Oxygen-dependent COPD with hypoxia. 5. Lung cancer. 6. Coronary artery disease. 7. Acute congestive heart failure with associated edema. 8. Hypertension. 9. Hyperlipidemia. 10. Polycythemia vera. 11. Generalized weakness. 12. Bilateral calf pain deep vein thrombosis ruled out. PROCEDURE: Bilateral leg venous Doppler studies. HISTORY OF PRESENT ILLNESS: Patient is an 86-year-old male who awoke the morning of admission with acute onset of bilateral leg edema with associated erythema and pain. Perhaps there were some vague symptoms that started the night prior. The patient just completed a course of Azithromycin for respiratory symptoms. The patient has underlying oxygen-dependent COPD with right upper lobe lobectomy for lung cancer, coronary artery disease, congestive heart failure, etc. Please see previously dictated history and physical for further details. HOSPITAL COURSE: The patient was admitted with bilateral lower leg cellulitis with associated profound edema. He was started on Clindamycin 600 mg IV t.i.d. Over the subsequent days, cellulitis began to improve and fade. In addition, patient developed acute onset of left big toe gouty attack, treated with his usual Colchicine. This seemed to be improving by the time of discharge. Initially he needed oxygen at 4-5 liters per minute, but by the time he was discharged, he was down to his usual 3 liters per minute. There were concerns for acute congestive heart failure in light of the pronounced edema, and he was treated with Lasix. Leg edema did improve from 4+ down to 3+ and he was discharged on bilateral Doug wrap leg wraps to bring edema down. He acknowledged that he would be poorly compliant with DANYELLE hose due to associated discomfort. He was advised to exercise, be on a low-salt diet, leg elevation, etc. During his stay, leg elevation was not faithfully performed. On his last day, he was experiencing bilateral posterior calf pain, but fortunately the bilateral leg venous Doppler studies were negative for deep vein thrombosis. He did receive prophylactic Lovenox during his stay. He did have a left dorsal hand skin tear at time of presentation to the hospital. This was treated conservatively, and was improved by time of discharge. Also, he had generalized weakness and Physical Therapy worked with him to the point that he was able to ambulate about 100 feet by the time of discharge .This will require additional outpatient treatment as well. DISCHARGE INSTRUCTIONS: Patient was encouraged to exercise, and was also encouraged to keep leg elevated while in bed, otherwise no particular activity restriction. He is on a cardiac, low-salt diet. For his left dorsal hand skin tear, he will use antibiotic ointment, Telfa, and Kerlix on a daily basis. For the bilateral leg edema, he and his were taught how to conservative Doug wraps on a daily basis. He has a follow up appointment with Dr. Bray on 08/22/16. Home Health Care, Nursing and Physical Therapy will follow patient on an outpatient basis. DISCHARGE MEDICATIONS Clindamycin 300 mg p.o. q.i.d. x7 days, 1 refill. Aspirin 81 mg p.o. daily. Docusate 100 mg p.o. daily. Colchicine 0.6 mg p.o. daily-b.i.d. PRN gout. Furosemide 40 mg p.o. q.a.m. KCL 20 MEQ p.o. daily. Atorvastatin 20 mg p.o. daily. Mucinex 1200 mg p.o. b.i.d. PRN. Lisinopril 10 mg p.o. daily. ProAir HFA inhaler 2 puffs q.i.d. PRN. Spiriva 18 mcg inhaler daily. Copies to: Jesus De La Cruz MD; Johnnie Humphries MD; Gonzalo Maurice MD [facility]
== END 2016-08-19 16:28 | disposition home or self-care (01) | DRG 603 ==
LOC: ER 10:28 → IN 12:46
PROVIDERS: ADMIT Family Medicine; ATTEND Family Medicine
DX: L03.115 Cellulitis of right lower limb (principal); L03.116 Cellulitis of left lower limb; R26.2 Difficulty in walking, not elsewhere classified; M10.9 Gout, unspecified; T14.8 Other injury of unspecified body region; J44.9 Chronic obstructive pulmonary disease, unspecified; Z99.81 Dependence on supplemental oxygen; Z85.118 Personal history of other malignant neoplasm of bronchus and lung; I25.10 Atherosclerotic heart disease of native coronary artery without angina pectoris; I50.9 Heart failure, unspecified; I10 Essential (primary) hypertension; E78.5 Hyperlipidemia, unspecified; R53.1 Weakness; D45 Polycythemia vera; F32.89 Other specified depressive episodes; H91.93 Unspecified hearing loss, bilateral; K80.20 Calculus of gallbladder without cholecystitis without obstruction; R60.0 Localized edema; Z79.899 Other long term (current) drug therapy; Z74.3 Need for continuous supervision
CPT/HCPCS: 36415; 71010; 80048; 82550; 83880; 84550; 85007; 85025; 85027; 86140; 87040; 93970; 96365; 99285; A0425; A0427; E0555; J1650; J7050; J7512; J7611